=== PATIENT | female | born 1935 | race Two or more races ===

== ENCOUNTER → 2016-03-28 | Outpatient (CLI) | payer OTHER ==
[~2016-03-28] MED LIST: REGADENOSON 0.4 MG/5 ML DISP.SYRIN. IV ONE
--- NOTE | 2016-03-28 14:11 | RAD ---
APPROVED REPORT Test Type: Pharmacological Stress Nurse/Tech: WERNER Maxwell RN Test Indications: Dyspnea on exertion Cardiac History: see EHR Medications: see EHR Medical History: see EHR Resting ECG: Afib with RVR Resting Heart Rate: 125 bpm Resting Blood Pressure: 146/78mmHg Pretest Chest Pain: No chest pain Nurse/Tech Notes Lungs CTA, heart tones irregular Consent: The procedure was explained to the patient in lay terms. Informed consent was witnessed. Edis eout was entered into Nidmi. History and Stress Test performed by RT Damián (R) (N) Pharm. Details Pharmacologic stress testing was performed using 0.4mg per 5ml of regadenoson given intravenously ove r 7-10 seconds. Stress Symptoms No chest pain or symptoms. POST EXERCISE Reason for Termination: Infusion complete Max HR: 168 bpm 144% of Maximum Predicted HR: 116 bpm Max Blood Pressure: 152/73mmHg Chest Pain: No. Arrhythmia: Yes. occasional PVC ST Change: No. INTERPRETATION Stress EKG Conclusion: No acute changes were noted. Imaging Protocol IMAGE PROTOCOL: Rest Tc-99m/stress Tc-99m 1 day Rest: Stress: Viability: Radiopharm.Tc99m RrzerphvtRv80s Sestamibi Louv17uIe 34mCi Img Date 03/28/2016 03/28/2016 Inj-Img [id number]. 60min. Rest Admin Site:IV - Left ForearmAdministrator:RT Damián (R)(N) Stress Admin Site: IV - Left ForearmAdministrator: RT Damián (R)(N) STRESS DATA End Diast. Vol.27.0mlAv. Heart Dkxe373.0bpm End Syst. Vol.3.0mlCO Index BSA0.0L/min Myocardial Mass63.0gEject. Monxntar85.0% Stress Rates Pk. Fill Rate7.32EDV/secLVtime Pk. Fill 115.58msec Pk. Empty Rate6.00ESV/secLVtime Pk. Npofx079.00msec /3 Pk. Fill2.07EDV/sec Stress Scores Regional WT1.00Summed WT8.00 Regional WM0.00Summed WM0.00 The rest and stress images show normal perfusion, normal contraction and thickening. LV Perf. Quant 17 Seg. SSS0.00 17 Seg. SRS0.00 17 Seg. SDS0.00 Stress Defect Extent (% LAD)0.00Rest Defect Extent (% LAD)0.00Rev. Defect Extent (% LAD)0.00 Stress Defect Extent (% LCX) 0.00Rest Defect Extent (% LCX)0.00Rev. Defect Extent (% LCX)0.00 Stress Defect Extent (% RCA)0.00Rest Defect Extent (% RCA)0.00Rev. Defect Extent (% RCA)0.00 Stress Defect Extent (% EDIN)0.00Rest Defect Extent (% EDIN)0.00Rev. Defect Extent (% EDIN)0.00 Other Information Quality:Excellent Risk Assessment: Low Risk Conclusion 1. No evidence of stress induced EKG changes. 2. Normal myocardial perfusion at stress/rest 3. Low risk study 4. Normal EF at > 70%
--- NOTE | 2016-03-28 14:35 | CARD ---
APPROVED REPORT EXAM: Two-dimensional and M-mode echocardiogram with Doppler and color Doppler. Other Information Quality : Good Rhythm : Atrial Fibrillation INDICATION Dyspnea Atrial Fibrillation 2D DIMENSIONS RVDd2.1 (2.9-3.5cm)Left Atrium(2D)5.1 (1.6-4.0cm) IVSd0.9 (0.7-1.1cm)Aortic Root(2D)2.1 (2.0-3.7cm) LVDd4.2 (3.9-5.9cm)LVOT Diameter1.9 (1.8-2.4cm) PWd1.0 (0.7-1.1cm)LVDs3.5 (2.5-4.0cm) FS (%) 25.0 %SV29.0 ml LVEF(%)50.0 (>50%) Aortic Valve AoV Peak Luís.134.3cm/sAoV VTI23.3cm AO Peak GR.7.2mmHgLVOT Peak Luís.94.3cm/s AO Mean GR.4mmHgAVA (VMAX)1.98cm2 JOSE ELIAS (VTI)1.22gl9AM P 1/2 Aglp999ay Mitral Valve MV E Ysmpewuu927.0cm/sMV DECEL HCVH06pz MV A Velocity0.1cm/sE/A Vuzcq2008.0 Tricuspid Valve TR P. Uhrmbpge557ss/sRAP YQMFQXWY1tbRe TR Peak Gr.49ebNwNCIA52xkBq LEFT VENTRICLE The left ventricle is normal size. There is normal left ventricular wall thickness. Left ventricle sy stolic function is low normal. The Ejection Fraction is 50-55%. There is normal LV segmental wall mot ion. Tissue Doppler imaging reveals moderate left ventricular diastolic dysfunction. RIGHT VENTRICLE The right ventricle is normal size. The right ventricular systolic function is normal. ATRIA The left atrium is severely dilated. The right atrium size is normal. The interatrial septum is intac t with no evidence for an atrial septal defect or patent foramen ovale as noted on 2-D or Doppler ant ging. AORTIC VALVE The aortic valve is calcified but opens well. Doppler and Color Flow revealed mild aortic regurgitati on. There is no significant aortic valvular stenosis. MITRAL VALVE The mitral valve is normal in structure and function. Mitral annular calcification is mild. There is no evidence of mitral valve prolapse. There is no mitral valve stenosis. Doppler and Color-flow revea led mild mitral regurgitation. TRICUSPID VALVE The tricuspid valve is normal in structure and function. Doppler and Color Flow revealed mild tricusp id regurgitation. The PA pressure was estimated at 37 mmHg. There is no tricuspid valve stenosis. PULMONIC VALVE The pulmonary valve is normal in structure and function. Doppler and Color Flow revealed trace pulmon ic valvular regurgitation. There is no pulmonic valvular stenosis. GREAT VESSELS The aortic root is normal in size. The ascending aorta is normal in size. The IVC is normal in size a nd collapses >50% with inspiration. PERICARDIAL EFFUSION There is no evidence of significant pericardial effusion. Critical Notification Critical Value: No <Conclusion> Left ventricle systolic function is low normal. The Ejection Fraction is 50-55%. There is normal LV segmental wall motion. Tissue Doppler imaging reveals moderate left ventricular diastolic dysfunction. The left atrium is severely dilated.
== END | disposition home or self-care (01) ==
LOC: NM 08:28
PROVIDERS: ATTEND Internal Medicine Cardiovascular Disease
DX: I34.0 Nonrheumatic mitral (valve) insufficiency (principal); I51.9 Heart disease, unspecified; I37.1 Nonrheumatic pulmonary valve insufficiency; I07.1 Rheumatic tricuspid insufficiency; I34.8 Other nonrheumatic mitral valve disorders; I35.1 Nonrheumatic aortic (valve) insufficiency
CPT/HCPCS: 78452; 93017; 93306; 96374; 96376; A9500; J2785

== ENCOUNTER → 2016-09-13 | Outpatient (CLI) | payer OTHER ==
[~2016-09-13] MED LIST changes: +CELE200C PO; +GABA-585 PO; +LISI-334 PO; +MOME13HF2 IH; -REGADENOSON 0.4 MG/5 ML DISP.SYRIN. IV ONE; +WARF2TAB7 PO
--- NOTE | 2016-09-13 10:17 | KCIC ---
EXAM: Bilateral screening mammogram. HISTORY: 81-year-old female presents for screening mammography. TECHNIQUE: Full-field digital craniocaudal and mediolateral oblique views of both breasts are obtained for evaluation. Computer aided detection with KreditsD software version 9.3 was applied. COMPARISON: None. This is a baseline mammogram. BREAST PARENCHYMAL DENSITY: Level B - Scattered fibroglandular densities. FINDINGS: There is no suspicious mass, microcalcification or region of architectural distortion. There are benign calcifications within both breasts, predominantly vascular in etiology. There is a small left maxillary tail lymph node. IMPRESSION: BI-RADS Category 2: Benign finding(s). RECOMMENDATION: Annual mammography is recommended. If your mammogram demonstrates that you have dense breast tissue, which could hide abnormalities, and if you have other risk factors for breast cancer that have been identified, you might benefit from supplemental screening tests that may be suggested by your ordering physician. Dense breast tissue, in and of itself, is a relatively common condition. This information is not provided to cause undue concern, but rather to raise your awareness and to promote discussion with your physician regarding the presence of other risk factors, in addition to dense breast tissue. A report of your mammography results will be sent to you and your physician. You should contact your physician if you have any questions or concerns regarding this report. Mammography is a sensitive method for finding small breast cancers, but it does not detect them all and is not a substitute for careful clinical examination. A negative mammogram does not negate a clinically suspicious finding and should not result in delay in biopsying a clinically suspicious abnormality. PQRS compliance statement - Patient information was entered into a reminder system with a target due date for the next mammogram. "Our facility is accredited by the [employer] Mammography Program." Electronically signed by: Lesley Cordova MD (09/13/2016 10:14 AM)
== END | disposition home or self-care (01) ==
LOC: KCIC 09:19
PROVIDERS: ATTEND Family Medicine
DX: Z12.31 Encounter for screening mammogram for malignant neoplasm of breast (principal)
CPT/HCPCS: G0202; 77067

== ENCOUNTER → 2016-09-14 | Day surgery (SDC) | payer OTHER ==
[~2016-09-14] MED LIST changes: +HYDROmorphone 2 MG/ML VIAL IV PRN; +IPRATRPIUM/ALBUTEROL 0.5/2.5MG 3 ML NEBU. NEB ONE; +IV RINGERS,LACTATED 1000ML 1,000 ML IV SCH; +LIDOCAINE 1% 1 ML SYRINGE. ID PRN; +LIDOCAINE 2% PF Vial for OR 5 ML VIAL. ONE; +MORPHINE SULFATE 2 MG/ML DISP.SYRIN. IV PRN; +ONDANSETRON PF 4 MG/2 ML VIAL. IV PRN; +PROCHLORPERAZINE 10 MG/2 ML VIAL. IV PRN; +PROPOFOL 20 ML IV ONE; +fentaNYL PF VIAL 100 MCG/2 ML VIAL IV PRN
[2016-09-14 10:33] VITALS: BP 153/68
--- NOTE | 2016-09-18 13:53 | PATHOLOGY ---
PATHOLOGY REPORT * * * * * * * * FINAL DIAGNOSIS: A. Small bowel biopsy: - No significant pathologic abnormalities. B. Gastric biopsies, antrum: - Chronic gastritis, mild. C. 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 COMMENT: Sections of the small bowel biopsy reveal segments of duodenal and small intestine mucosa. Where best oriented, the mucosal villi appear normal. There are no sprue-like changes or significant inflammatory changes. Sections of the gastric biopsy reveal segments of gastric body and gastric antral mucosa. The gastric body mucosa shows slight superficial chronic inflammation. The gastric antral mucosa shows mild chronic inflammation. An immunoperoxidase stain for Helicobacter is obtained. No Helicobacter organisms are identified. 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 There is no squamous esophageal mucosa identified. There is no evidence of dysplasia or malignancy. (JPM:mgr; 09/18/2016) Special Stain Performed: Immunoperoxidase stain for Helicobacter (B1) REPORT ELECTRONICALLY SIGNED BY: Arun Chavira M.D. DATE/TIME: 09/18/2016 13:52 * * * * * * * * GROSS PATHOLOGY: A. Received in formalin labeled "Macie Amtrumanquitarazo, small bowel," are four segments of knight soft tissue measuring 0.8 x 0.6 x 0.1 cm in aggregate dimensions and ranging from 0.2 to 0.4 cm in maximum dimension. The specimen is submitted entirely in cassette A1. B. Received in formalin labeled "Macie Amtrumanquitarazo, antrum," are two segments of knight soft tissue measuring 0.7 x 0.4 x 0.1 cm in aggregate dimensions and ranging from 0.3 to 0.7 cm in maximum dimension. The specimen is submitted entirely in cassette B1. C. Received in formalin labeled "Macie Amtrumanquitarazo, distal esophagus," are four segments of knight soft tissue measuring 0.6 x 0.6 x 0.2 cm in aggregate dimensions and ranging from 0.2 to 0.5 cm in maximum dimension. The specimen is submitted entirely in cassette C1. (CAA; 09/15/2016) INITIAL CPT CODE(S): A; 07175 B; 68788, 14493 C; 74107 Professional services performed by [facility] at [address] [address] Technical services performed by [facility] at [address] [place] [address], [address] [address]. SPECIMEN(S) RECEIVED: A.Small bowel B.Gastric antrum C.Distal esophagus CLINICAL HISTORY: Anemia PATIENT: MACIE BATRES I /AGE: 1101/28/1935 (Age: 81) PATIENT #: [id number] ALT CASE #: SPECIMEN COLLECTION DATE: 09/14/2016 SPECIMEN RECEIVED DATE: 09/14/2016 [facility] - [address] [place] [address] - PHONE: [phone] * * * END OF REPORT * * *
== END | disposition home or self-care (01) ==
LOC: ENDOS 08:54
PROVIDERS: ATTEND Internal Medicine Gastroenterology
DX: D50.9 Iron deficiency anemia, unspecified (principal); K21.0 Gastro-esophageal reflux disease with esophagitis; K31.89 Other diseases of stomach and duodenum; M19.90 Unspecified osteoarthritis, unspecified site; I10 Essential (primary) hypertension; Z83.3 Family history of diabetes mellitus; Z72.89 Other problems related to lifestyle; Z87.39 Personal history of other diseases of the musculoskeletal system and connective tissue
CPT/HCPCS: 43239; 94640; J2704; J7620; 88305; 88342; J2001

== ENCOUNTER → 2016-10-31 | Outpatient (CLI) | payer OTHER ==
[2016-09-14 10:33] VITALS: BP 153/68
[~2016-10-31] MED LIST changes: -HYDROmorphone 2 MG/ML VIAL IV PRN; -IPRATRPIUM/ALBUTEROL 0.5/2.5MG 3 ML NEBU. NEB ONE; -IV RINGERS,LACTATED 1000ML 1,000 ML IV SCH; -LIDOCAINE 1% 1 ML SYRINGE. ID PRN; -LIDOCAINE 2% PF Vial for OR 5 ML VIAL. ONE; -MORPHINE SULFATE 2 MG/ML DISP.SYRIN. IV PRN; -ONDANSETRON PF 4 MG/2 ML VIAL. IV PRN; -PROCHLORPERAZINE 10 MG/2 ML VIAL. IV PRN; -PROPOFOL 20 ML IV ONE; -fentaNYL PF VIAL 100 MCG/2 ML VIAL IV PRN
--- NOTE | 2016-10-31 14:23 | KCIC ---
KNEE BILAT 3V Indication: Knee osteoarthritis. . Comparison: No comparison is available. FINDINGS: Left knee Moderate narrowing at the medial joint compartment with mild subchondral sclerosis. Tricompartmental osteophytes. Bone demineralization. No evidence of acute fracture or aggressive bone destruction. Mild lateral tibial shift, compatible with degenerative etiology. Suprapatellar soft tissue fullness compatible with joint effusion. Right knee Moderate to severe narrowing at the medial joint compartment with subchondral sclerosis. Tricompartmental osteophytes. No acute fracture. No aggressive bone destruction. No gross dislocation. Probable joint effusion. IMPRESSION: 1. Bilateral primary osteoarthritis. 2. Bilateral joint effusions. Electronically signed by: Nickolas Lovett MD (10/31/2016 2:20 PM) [facility]-KCIC2
== END | disposition home or self-care (01) ==
LOC: KCIC 12:33
PROVIDERS: ATTEND Family Medicine
DX: M17.0 Bilateral primary osteoarthritis of knee (principal)
CPT/HCPCS: 73562

== ENCOUNTER → 2017-06-13 | Outpatient (CLI) | payer OTHER ==
[2017-06-13 11:40] LABS: ADD MAN DIFF? NO
[2017-06-13 11:50] LABS: BASO # 0.1 x10^3/uL (0.0-0.2); BASO % 1 % (0-3); EOS # 0.1 x10^3/uL (0.0-0.7); EOS % 2 % (0-3); HEMATOCRIT 35.5 % (36.0-47.0); HEMOGLOBIN 11.8 g/dL (12.0-15.5); LYMPH # 1.7 x10^3/uL (1.0-4.8); LYMPH % 28 % (24-48); MEAN CORPUSCULAR HEMOGLOBIN 30 pg (25-35); MEAN CORPUSCULAR HGB CONC 33 g/dL (31-37); MEAN CORPUSCULAR VOLUME 89 fL (79-100); MONO # 0.4 x10^3/uL (0.0-1.1); MONO % 6 % (0-9); NEUT % 64 % (31-73); PLATELET COUNT 280 x10^3/uL (140-400); RED BLOOD COUNT 3.98 x10^6/uL (3.50-5.40); RED CELL DISTRIBUTION WIDTH 15.3 % (11.5-14.5); WHITE BLOOD COUNT 6.3 x10^3/uL (4.0-11.0)
[2017-06-13 11:53] LABS: ALBUMIN 3.4 g/dL (3.4-5.0); ANION GAP 6 (6-14); BLOOD UREA NITROGEN 25 mg/dL (7-20); CALCIUM 9.2 mg/dL (8.5-10.1); CARBON DIOXIDE 29 mmol/L (21-32); CHLORIDE 107 mmol/L (98-107); CREATININE 0.9 mg/dL (0.6-1.0); GFR 59.7; GLUCOSE 104 mg/dL (70-99); POTASSIUM 4.2 mmol/L (3.5-5.1); SODIUM 142 mmol/L (136-145)
[2017-06-13 12:11] LABS: PARTIAL THROMBOPLASTIN TIME 31 SEC (24-38); PROTHROMBIN TIME PATIENT 12.6 SEC (11.7-14.0)
[2017-06-13 12:32] LABS: BILIRUBIN,URINE NEGATIVE (NEG); CLARITY,URINE CLEAR; COLOR,URINE YELLOW; GLUCOSE,URINE NEGATIVE (NEG); NITRITE,URINE NEGATIVE (NEG); PROTEIN,URINE NEGATIVE (NEG-TRACE); UROBILINOGEN,URINE 0.2 mg/dL (0.2 mg/dL)
[2017-06-13 13:01] LABS: BACTERIA,URINE FEW /HPF (0-FEW); RBC,URINE 0 /HPF (0-2); SQUAMOUS EPITHELIAL CELL,UR FEW /LPF; WBC,URINE OCC /HPF (0-4)
[2017-06-13 13:02] LABS: HYALINE CASTS, URINE OCCASIONAL /HPF
[2017-06-13 13:46] LABS: SEDIMENTATION RATE 51 (0-25)
[2017-06-13 20:12] LABS: MRSA BY PCR Negative (Negative)
== END | disposition home or self-care (01) ==
LOC: SURGPAT 10:36
DX: Z01.818 Encounter for other preprocedural examination (principal); I51.7 Cardiomegaly; I10 Essential (primary) hypertension; I70.0 Atherosclerosis of aorta
CPT/HCPCS: 36415; 71046; 80048; 81001; 82040; 85025; 85610; 85651; 85730; 87086; 87641

== ENCOUNTER 2017-06-25 06:04 | Inpatient (IN) | payer OTHER, MEDICAID ==
[2017-06-25] MEDS: ACETAMINOPHEN 500 MG TABLET PO (06:54)
[2017-06-25] MEDS: MELOXICAM 7.5 MG TABLET PO (06:54)
[2017-06-25] MEDS: IV RINGERS,LACTATED 1000ML 1,000 ML IV (06:54)
[2017-06-25] MEDS ORDERED: PROCHLORPERAZINE 10 MG/2 ML VIAL. IV ×2 (07:00→07:45)
[2017-06-25] MEDS ORDERED: HYDROmorphone 2 MG/ML VIAL IV (07:00)
[2017-06-25] MEDS ORDERED: fentaNYL PF VIAL 100 MCG/2 ML VIAL IV ×4 (07:00→07:45)
[2017-06-25] MEDS ORDERED: LIDOCAINE 1% PF 2 ML VIAL. ID (07:00)
[2017-06-25] MEDS ORDERED: PROPOFOL 20 ML IV (07:05)
[2017-06-25] MEDS ORDERED: ONDANSETRON PF 4 MG/2 ML VIAL. (07:05)
[2017-06-25] MEDS ORDERED: DEXAMETHASONE SOD PHOS 20 MG/5 ML VIAL. (07:05)
[2017-06-25] MEDS ORDERED: ROCURONIUM 50 MG/5 ML VIAL. (07:06)
[2017-06-25] MEDS ORDERED: fentaNYL PF VIAL 100 MCG/2 ML VIAL (07:06)
[2017-06-25 07:10] LABS: INR 1.1 (0.8-1.1); PARTIAL THROMBOPLASTIN TIME 29 SEC (24-38); PROTHROMBIN TIME PATIENT 13.8 SEC (11.7-14.0)
[2017-06-25] MEDS: ceFAZolin SODIUM 1 GM in IV DEXTROSE 5% 50 ML IV (07:40)
[2017-06-25] MEDS ORDERED: NON FORMULARY ITEM (Mometasone/Formoterol (Dulera 100 Mcg/5 Mcg Inhaler) 2 PUFF) IH (07:45)
[2017-06-25] MEDS ORDERED: PROCHLORPERAZINE 5 MG TABLET. PO (07:45)
[2017-06-25] MEDS ORDERED: DEXTROSE 50% 25 GM / 50ML DISP.SYRIN. IV (07:45)
[2017-06-25] MEDS ORDERED: diphenhydrAMINE 50 MG/ML VIAL IV (07:45)
[2017-06-25] MEDS ORDERED: METOCLOPRAMIDE HCL 10 MG/2 ML VIAL. IV (07:45)
[2017-06-25] MEDS ORDERED: traMADol 50 MG TABLET PO ×2 (07:45)
[2017-06-25] MEDS ORDERED: HYDROcodone/APAP 10/325 1 TAB TABLET PO (07:45)
[2017-06-25] MEDS ORDERED: HYDROcodone/APAP 7.5/325MG 1 TAB TABLET PO (07:45)
[2017-06-25] MEDS ORDERED: CALCIUM CARBONATE 500 MG TAB.CHEW PO (07:45)
[2017-06-25] MEDS ORDERED: ACETAMINOPHEN 325 MG TABLET. PO (07:45)
[2017-06-25] MEDS ORDERED: NON FORMULARY ITEM (Albuterol Sulfate (Albuterol Sulfate Conc Neb Soln) 1 VIAL) NEB (07:45)
[2017-06-25] MEDS ORDERED: ZOLPIDEM 5 MG TABLET. PO (07:45)
[2017-06-25] MEDS ORDERED: MORPHINE SULFATE 10 MG/ML VIAL. IV (07:45)
[2017-06-25] MEDS ORDERED: MORPHINE SULFATE 4 MG/ML DISP.SYRIN. IV ×2 (07:45)
[2017-06-25] MEDS: TRANEXAMIC ACID 1,000 MG in IV NS 50ML -- 1ST BAG INJ (07:55)
[2017-06-25] MEDS: TV=100ml MORPHINE 5 MG, KETOROLAC 30 MG, ROPIVacaine 0.5% PF 60 ML, EPINEPH... INT ART (07:58)
[2017-06-25] MEDS ORDERED: ceFAZolin 2GM PREMIX 2 GM/50 ML BAG IV (08:00)
[2017-06-25] MEDS ORDERED: PHENYLEPHRINE in 0.9% NACL PF 1 MG/10 ML SYRINGE. IV (08:19)
[2017-06-25] MEDS ORDERED: GLYCOPYRROLATE 1 MG/5 ML VIAL. (08:20)
[2017-06-25] MEDS ORDERED: NEOSTIGMINE METHYLSULFATE 5 MG/5 ML SYRINGE. (08:20)
[2017-06-25] MEDS ORDERED: ALBUTEROL SULFATE 2.5 MG/3 ML NEBU. NEB (08:45)
[2017-06-25] MEDS ORDERED: SEVOFLURANE 61 TO 120 MINUTES. IH (08:52)
[2017-06-25] MEDS: TRANEXAMIC ACID 1,000 MG in IV NS 50ML -- 2ND BAG INJ (08:55)
[2017-06-25] MEDS ORDERED: fentaNYL PF VIAL 250 MCG/5 ML VIAL (09:27)
[2017-06-25] MEDS: MORPHINE SULFATE 4 MG/ML DISP.SYRIN. IV ×3 (10:05→10:36)
[2017-06-25] MEDS: 0.9 % SODIUM CHLORIDE 10 ML DISP.SYRIN. IV (10:06)
[2017-06-25] MEDS: IV DEXTROSE 5 %-0.45 % NACL 1,000 ML IV ×2 (10:35→15:54)
[2017-06-25] MEDS: ONDANSETRON PF 4 MG/2 ML VIAL. IV (11:39)
[2017-06-25] MEDS ORDERED: NOREPINEPHRIN PREMIX 250 ML IV (11:45)
[2017-06-25] MEDS: ALBUTEROL SULFATE 2.5 MG/3 ML NEBU. NEB ×3 (12:00→20:22)
[2017-06-25] MEDS: ceFAZolin SODIUM IV Push 1 GM VIAL. IVP ×2 (13:47→20:53)
[2017-06-25] MEDS: GABAPENTIN 100 MG CAPSULE. PO ×2 (13:47→20:53)
[2017-06-25] MEDS ORDERED: WARFARIN 7.5 MG TABLET. PO (16:00)
[2017-06-25] MEDS: FERROUS SULFATE 325 MG TABLET. PO (17:04)
[2017-06-25] MEDS: WARFARIN 5 MG TABLET. PO (17:05)
[2017-06-25] MEDS: BUDESONIDE 0.5 MG/2 ML NEBU. NEB (20:22)
[2017-06-25] MEDS: CELECOXIB 200 MG CAPSULE. PO (20:53)
[2017-06-26] MEDS: ceFAZolin SODIUM IV Push 1 GM VIAL. IVP (01:50)
[2017-06-26] MEDS: IV DEXTROSE 5 %-0.45 % NACL 1,000 ML IV ×2 (01:50→17:00)
[2017-06-26] MEDS ORDERED: MAGNESIUM HYDROXIDE 2,400 MG/30 ML ORAL.SUSP. PO (06:00)
[2017-06-26 07:01] LABS: HEMATOCRIT 28.8 % (36.0-47.0); HEMOGLOBIN 9.4 g/dL (12.0-15.5); MEAN CORPUSCULAR HGB CONC 33 g/dL (31-37)
[2017-06-26] MEDS: BUDESONIDE 0.5 MG/2 ML NEBU. NEB ×2 (07:09→20:11)
[2017-06-26] MEDS: ALBUTEROL SULFATE 2.5 MG/3 ML NEBU. NEB ×4 (07:09→20:11)
[2017-06-26 07:21] LABS: INR 1.9 (0.8-1.1); PROTHROMBIN TIME PATIENT 21.1 SEC (11.7-14.0)
[2017-06-26] MEDS: LISINOPRIL 20 MG TABLET PO (07:41)
[2017-06-26] MEDS: CELECOXIB 200 MG CAPSULE. PO ×2 (09:11→20:26)
[2017-06-26] MEDS: GABAPENTIN 100 MG CAPSULE. PO ×3 (09:12→20:26)
[2017-06-26] MEDS: PANTOPRAZOLE 40 MG TABLET.DR. PO (09:12)
[2017-06-26] MEDS: SENNOSIDES/DOCUSATE 8.6/50MG TABLET. PO (09:12)
[2017-06-26] MEDS: ASPIRIN ENTERIC COATED 81 MG TABLET.DR. PO (09:12)
[2017-06-26] MEDS: oxyCODONE/APAP 7.5/325 1 TAB TABLET PO (09:12)
[2017-06-26] MEDS: MULTIVITAMIN with MINERAL TABLET. PO (09:12)
[2017-06-26] MEDS: FERROUS SULFATE 325 MG TABLET. PO ×2 (09:12→17:37)
[2017-06-26] MEDS: oxyCODONE/APAP 5/325 1 TAB TABLET PO ×2 (14:25→17:42)
[2017-06-26] MEDS ORDERED: BISACODYL 10 MG SUPP.RECT. PR (16:00)
[2017-06-26] MEDS: WARFARIN 1 MG TABLET. PO (17:38)
[2017-06-27] MEDS: oxyCODONE/APAP 5/325 1 TAB TABLET PO ×4 (03:09→17:24)
[2017-06-27 05:48] LABS: HEMATOCRIT 26.3 % (36.0-47.0); HEMOGLOBIN 8.8 g/dL (12.0-15.5); MEAN CORPUSCULAR HGB CONC 33 g/dL (31-37)
[2017-06-27 05:55] LABS: INR 3.3 (0.8-1.1); PROTHROMBIN TIME PATIENT 33.1 SEC (11.7-14.0)
[2017-06-27] MEDS: ALBUTEROL SULFATE 2.5 MG/3 ML NEBU. NEB ×4 (06:45→20:09)
[2017-06-27] MEDS: BUDESONIDE 0.5 MG/2 ML NEBU. NEB ×2 (06:45→20:09)
[2017-06-27] MEDS: PANTOPRAZOLE 40 MG TABLET.DR. PO (07:06)
[2017-06-27] MEDS: ASPIRIN ENTERIC COATED 81 MG TABLET.DR. PO (08:44)
[2017-06-27] MEDS: CELECOXIB 200 MG CAPSULE. PO ×2 (08:44→21:03)
[2017-06-27] MEDS: SENNOSIDES/DOCUSATE 8.6/50MG TABLET. PO (08:44)
[2017-06-27] MEDS: FERROUS SULFATE 325 MG TABLET. PO ×2 (08:45→17:23)
[2017-06-27] MEDS: MULTIVITAMIN with MINERAL TABLET. PO (08:45)
[2017-06-27] MEDS: GABAPENTIN 100 MG CAPSULE. PO ×3 (08:45→21:03)
[2017-06-27] MEDS: LISINOPRIL 20 MG TABLET PO (09:00)
[2017-06-28 05:26] LABS: HEMATOCRIT 29.4 % (36.0-47.0); HEMOGLOBIN 9.9 g/dL (12.0-15.5); MEAN CORPUSCULAR HGB CONC 34 g/dL (31-37)
[2017-06-28 05:29] LABS: INR 2.5 (0.8-1.1); PROTHROMBIN TIME PATIENT 26.6 SEC (11.7-14.0)
[2017-06-28] MEDS: PANTOPRAZOLE 40 MG TABLET.DR. PO (06:31)
[2017-06-28] MEDS: oxyCODONE/APAP 5/325 1 TAB TABLET PO (07:38)
[2017-06-28] MEDS: BUDESONIDE 0.5 MG/2 ML NEBU. NEB (08:11)
[2017-06-28] MEDS: ALBUTEROL SULFATE 2.5 MG/3 ML NEBU. NEB ×2 (08:12→12:00)
[2017-06-28] MEDS: SENNOSIDES/DOCUSATE 8.6/50MG TABLET. PO (08:35)
[2017-06-28] MEDS: MULTIVITAMIN with MINERAL TABLET. PO (08:35)
[2017-06-28] MEDS: ASPIRIN ENTERIC COATED 81 MG TABLET.DR. PO (08:35)
[2017-06-28] MEDS: CELECOXIB 200 MG CAPSULE. PO (08:35)
[2017-06-28] MEDS: GABAPENTIN 100 MG CAPSULE. PO ×2 (08:35→15:09)
[2017-06-28] MEDS: FERROUS SULFATE 325 MG TABLET. PO (08:35)
[2017-06-28] MEDS: LISINOPRIL 20 MG TABLET PO (08:40)
[2017-06-28] MEDS: oxyCODONE/APAP 7.5/325 1 TAB TABLET PO (12:34)
[2017-06-28] MEDS: WARFARIN 1 MG TABLET. PO (15:08)
== END 2017-06-28 15:25 | disposition home health service (06) | DRG 470 ==
LOC: OPSVCIP 06:04 → 4 SOUTHEST 06-26 10:11 → 4 NORTH 11:03
PROC: 0SRC0J9 Replacement of Right Knee Joint with Synthetic Substitute, Cemented, Open Approach (ICD-10-PCS; principal; 2017-06-25 07:30)
DX: M17.11 Unilateral primary osteoarthritis, right knee (principal); I48.0 Paroxysmal atrial fibrillation; J45.909 Unspecified asthma, uncomplicated; I10 Essential (primary) hypertension
CPT/HCPCS: 36415; 73560; 85014; 85018; 85610; 85730; 86850; 86900; 86901; 88305; 88311; 94640; 94760; 97110-GP; 97116-GP; 97150-GP; 97162-GP; 97166-GO; 97530-GP; 97535-GO; C1713; J0171; J0690; J1100; J1885; J2270; J2370; J2405; J2704; J2710; J2795; J3010; J3490; J7120; J7613; J7626

== ENCOUNTER → 2017-10-08 | Outpatient (CLI) | payer MEDICAID, OTHER ==
[2017-10-08 15:24] LABS: ADD MAN DIFF? NO
[2017-10-08 15:29] LABS: BASO # 0.1 x10^3/uL (0.0-0.2); BASO % 1 % (0-3); EOS # 0.1 x10^3/uL (0.0-0.7); EOS % 1 % (0-3); HEMATOCRIT 36.9 % (36.0-47.0); HEMOGLOBIN 12.7 g/dL (12.0-15.5); LYMPH # 2.1 x10^3/uL (1.0-4.8); LYMPH % 25 % (24-48); MEAN CORPUSCULAR HEMOGLOBIN 30 pg (25-35); MEAN CORPUSCULAR HGB CONC 34 g/dL (31-37); MEAN CORPUSCULAR VOLUME 88 fL (79-100); MONO # 0.5 x10^3/uL (0.0-1.1); MONO % 6 % (0-9); NEUT # 5.6 x10^3uL (1.8-7.7); NEUT % 67 % (31-73); PLATELET COUNT 287 x10^3/uL (140-400); RED BLOOD COUNT 4.19 x10^6/uL (3.50-5.40); RED CELL DISTRIBUTION WIDTH 16.3 % (11.5-14.5); WHITE BLOOD COUNT 8.3 x10^3/uL (4.0-11.0)
[2017-10-08 15:38] LABS: BILIRUBIN,URINE NEGATIVE (NEG); CLARITY,URINE CLEAR; GLUCOSE,URINE NEGATIVE (NEG); NITRITE,URINE NEGATIVE (NEG); PROTEIN,URINE NEGATIVE (NEG-TRACE); UROBILINOGEN,URINE 0.2 mg/dL (0.2 mg/dL)
[2017-10-08 15:40] LABS: ALBUMIN 3.4 g/dL (3.4-5.0); ANION GAP 9 (6-14); BLOOD UREA NITROGEN 27 mg/dL (7-20); CALCIUM 9.2 mg/dL (8.5-10.1); CARBON DIOXIDE 27 mmol/L (21-32); CHLORIDE 104 mmol/L (98-107); CREATININE 0.9 mg/dL (0.6-1.0); GFR 59.7; GLUCOSE 105 mg/dL (70-99); POTASSIUM 3.7 mmol/L (3.5-5.1); SODIUM 140 mmol/L (136-145)
[2017-10-08 15:41] LABS: INR 1.1 (0.8-1.1); PARTIAL THROMBOPLASTIN TIME 31 SEC (24-38); PROTHROMBIN TIME PATIENT 13.4 SEC (11.7-14.0)
[2017-10-08 15:52] LABS: COLOR,URINE STRAW
[2017-10-08 15:54] LABS: RBC,URINE 0 /HPF (0-2)
[2017-10-08 15:55] LABS: BACTERIA,URINE 0 /HPF (0-FEW); SQUAMOUS EPITHELIAL CELL,UR FEW /LPF; WBC,URINE OCC /HPF (0-4)
[2017-10-08 16:58] LABS: SEDIMENTATION RATE 35 (0-25)
[2017-10-09 07:39] LABS: MRSA BY PCR Negative (Negative)
== END | disposition home or self-care (01) ==
LOC: SURGPAT 13:20
DX: Z01.818 Encounter for other preprocedural examination (principal); M17.12 Unilateral primary osteoarthritis, left knee; I10 Essential (primary) hypertension; J45.909 Unspecified asthma, uncomplicated; K21.0 Gastro-esophageal reflux disease with esophagitis; Z86.2 Personal history of diseases of the blood and blood-forming organs and certain disorders involving the immune mechanism; Z87.39 Personal history of other diseases of the musculoskeletal system and connective tissue
CPT/HCPCS: 36415; 80048; 81001; 82040; 85025; 85610; 85651; 85730; 87086; 87641

== ENCOUNTER 2017-10-22 07:34 | Inpatient (IN) | payer OTHER ==
[~2017-10-22] VITALS: Ht 142.2 cm; Wt 55.3 kg
[2017-10-22] VITALS (10 sets, daily range): BP systolic 120–176; BP diastolic 66–78
[~2017-10-22 07:34] MED LIST changes: +ALBU2.5V14 NEB; +ASPI-482 PO; +IV RINGERS,LACTATED 1000ML 1,000 ML IV SCH; +LIDOCAINE 1% PF 2 ML VIAL. ID PRN; +MORPHINE SULFATE 2 MG/ML VIAL. IV PRN; +NAPR220T70 PO; +OMEP40CA5 PO; +ONDANSETRON PF 4 MG/2 ML VIAL. IV PRN; +OXYC-323 PO; +PROCHLORPERAZINE 10 MG/2 ML VIAL. IV PRN; +TRANEXAMIC ACID 1,000 MG in IV NS 50ML -- 1ST BAG INJ ONE; +TV=100ml MORPHINE 5 MG, KETOROLAC 30 MG, ROPIVacaine 0.5% PF 60 ML, EPINEPH... INT ART ONE; -WARF2TAB7 PO; +WARF2TAB96 PO; +fentaNYL PF VIAL 100 MCG/2 ML VIAL IV PRN
[2017-10-22] MEDS ORDERED: TRANEXAMIC ACID 1,000 MG in IV NS 50ML -- 2ND BAG INJ ONE (08:00)
[2017-10-22] MEDS ORDERED: MELOXICAM 7.5 MG TABLET PO ONE ×2 (08:01→09:00)
[2017-10-22] MEDS ORDERED: ACETAMINOPHEN 500 MG TABLET PO ONE ×2 (08:01→08:30)
[2017-10-22] MEDS ORDERED: WARF-78 PO (08:10)
[2017-10-22] MEDS ORDERED: fentaNYL PF VIAL 100 MCG/2 ML VIAL ONE (08:11)
[2017-10-22] MEDS ORDERED: PROPOFOL 20 ML IV ONE (08:11)
[2017-10-22] MEDS ORDERED: LIDOCAINE 2% PF Vial for OR 5 ML VIAL. ONE (08:11)
[2017-10-22] MEDS ORDERED: MELO15TA6 PO (08:12)
[2017-10-22] MEDS ORDERED: SCOPOLAMINE 1.5MG PATCH. TD ONE (09:00)
[2017-10-22] MEDS ORDERED: MELOXICAM 7.5 MG TABLET PO SCH (09:00)
[2017-10-22 10:08] LABS: PROTHROMBIN TIME PATIENT 14.2 SEC (11.7-14.0)
[2017-10-22] MEDS: IV DEXTROSE 5 %-0.45 % NACL 1,000 ML IV SCH ×2 (10:26→20:39)
[2017-10-22] MEDS ORDERED: ZOLPIDEM 5 MG TABLET. PO PRN (10:30)
[2017-10-22] MEDS ORDERED: METOCLOPRAMIDE HCL 10 MG/2 ML VIAL. IV PRN (10:30)
[2017-10-22] MEDS ORDERED: PROCHLORPERAZINE 5 MG TABLET. PO PRN (10:30)
[2017-10-22] MEDS ORDERED: NON FORMULARY ITEM (Mometasone/Formoterol (Dulera 100 Mcg/5 Mcg Inhaler) 2 PUFF) IH PRN (10:30)
[2017-10-22] MEDS ORDERED: oxyCODONE/APAP 7.5/325 1 TAB TABLET PO PRN (10:30)
[2017-10-22] MEDS ORDERED: DEXTROSE 50% 25 GM / 50ML DISP.SYRIN. IV PRN (10:30)
[2017-10-22] MEDS ORDERED: MORPHINE SULFATE 10 MG/ML VIAL. IV PRN (10:30)
[2017-10-22] MEDS ORDERED: fentaNYL PF VIAL 100 MCG/2 ML VIAL IV PRN ×2 (10:30)
[2017-10-22] MEDS ORDERED: PROCHLORPERAZINE 10 MG/2 ML VIAL. IV PRN (10:30)
[2017-10-22] MEDS ORDERED: 0.9 % SODIUM CHLORIDE 10 ML DISP.SYRIN. IV PRN (10:30)
[2017-10-22] MEDS ORDERED: CALCIUM CARBONATE 500 MG TAB.CHEW PO PRN (10:30)
[2017-10-22] MEDS ORDERED: MORPHINE SULFATE 4 MG/ML VIAL. IV PRN ×2 (10:30)
[2017-10-22] MEDS ORDERED: ACETAMINOPHEN 325 MG TABLET. PO PRN (10:30)
[2017-10-22] MEDS ORDERED: MORPHINE SULFATE 2 MG/ML VIAL. IV PRN (10:30)
[2017-10-22] MEDS ORDERED: HYDROcodone/APAP 7.5/325MG 1 TAB TABLET PO PRN (10:30)
[2017-10-22] MEDS ORDERED: diphenhydrAMINE 50 MG/ML VIAL IV PRN (10:30)
[2017-10-22] MEDS ORDERED: HYDROcodone/APAP 10/325 1 TAB TABLET PO PRN (10:30)
[2017-10-22] MEDS ORDERED: traMADol 50 MG TABLET PO PRN ×2 (10:30)
[2017-10-22] MEDS ORDERED: SEVOFLURANE 61 TO 120 MINUTES. IH ONE (10:33)
[2017-10-22] MEDS ORDERED: DEXAMETHASONE SOD PHOS 20 MG/5 ML VIAL. ONE (10:33)
[2017-10-22] MEDS ORDERED: ONDANSETRON PF 4 MG/2 ML VIAL. ONE (10:46)
[2017-10-22] MEDS ORDERED: ePHEDrine PF IN SALINE 50 MG/5 ML DISP.SYRIN IV ONE (11:16)
[2017-10-22] MEDS: ALBUTEROL SULFATE 2.5 MG/3 ML NEBU. NEB SCH ×3 (12:00→19:10)
[2017-10-22] MEDS: LISINOPRIL 20 MG TABLET PO SCH (12:00)
[2017-10-22] MEDS: fentaNYL PF VIAL 100 MCG/2 ML VIAL IV PRN ×3 (12:24→13:10)
--- NOTE | 2017-10-22 12:59 | RAD ---
Examination: 2 views of the left knee HISTORY: History of postop left knee replacement comparison: 05/22/2017 FINDINGS: Total knee arthroplasty changes in normal alignment. Postoperative air and postoperative history identified about the knee joint. Impression: Total arthroplasty grossly changes in normal alignment. Electronically signed by: Hugh Harding MD (10/22/2017 12:55 PM) [id number]
--- NOTE | 2017-10-22 14:22 | PDOC4 ---
Operative Note Operative Note Date of procedure: 10/22/2017 Surgeon: Pelon Carrero Job Hand: Ishan Knapp APRN Preoperative diagnosis: Advanced left knee primary degenerative joint disease Postoperative diagnosis: Same Procedure performed: Left total knee arthroplasty Anesthesia: Gen. Findings: Advanced primary degenerative joint disease of knee Complications: none Blood loss: 75ml Tourniquet time: 49 min Components inserted: P[employer]hew cobalt chrome femur size 3, size 1 journey II tibial baseplate, 23 biconvex patella, 11 mm articular insert Reason for procedure: Patient is a very pleasant woman underwent a successful contralateral total Knee with myself and was having severe and progressive pain that failed conservative therapies including anti-inflammatories, rehabilitation, intra- articular injections. We discussed proceeding with right total knee arthroplasty knee felt she had recovered well enough after her contralateral knee to do so. Description of procedure: Patient was greeted in the preoperative holding area by myself for the correct extremity was verified and marked. She was taken back to the operative suite and his antibiotics were started as she was brought back. Once in the operating room, she was transferred gently supine to the operating room table and secured the bed with all pressure points padded and had successful induction of a general anesthetic. I then conducted my examination under anesthesia which demonstrated range of motion 0-135. The knee was stable to varus and valgus in extension and 30 of flexion. We then applied and secured in place a nonsterile tourniquet to her left upper thigh. A padded bump was placed laterally at his hip and a padded rest across the foot of the bed to maintain his knee in 90 passively. We then proceeded to prep and drape right lower extremity in our usual sterile fashion including an Ioban [place]. After this, I palpated and marked surface anatomy and mykel a line from my plan skin incision. The extremity was then exsanguinated with an Esmarch and tourniquet insufflated to 250 mmHg. I then incised skin with a scalpel and dissected down to subcutaneous knee is tissue and cauterized bleeders with electrocautery. I identified the quadriceps tendon, borders of the patella and patellar tendon. I then performed my standard medial parapatellar arthrotomy and then performed my medial release with combination of Mondragon elevator and electrocautery. I then bluntly dissected the fat pad off the posterior aspect of the patellar tendon and protected this with an [facility] retractor while excised the fat pad with a curved Odell scissors. I then released the horns of the menisci anteriorly, flexed the knee and excised the cruciates. I then sized for her distal femur, it was a 3. I then gained entry to the distal femur after marking the epicondylar axis and Whitesides lines. I used a drill. I then advanced my intramedullary guide and pinned the distal cutting block into position. I then made my distal femoral cut and then impacted my 5 in 1 cutting block through the visionary holes and secured the this with threaded pins. I then made these respective cuts after placing my Z retractors to protect the collaterals. I then remove the cutting block and the loose bony pieces, taking care to ensure had removed osteophytes posteriorly. I then repositioned my retractors and flexed the knee further, and used the extramedullary tibial cutting guide and pinned this in position and made my proximal tibial cut. This bony piece was delivered from the operative field was circumferentially electrocautery. I then brought the leg him to extension and checked a spacer block and drop petra and was happy with my alignment and stability. I then used a lamina counter control operator and excised the menisci, leaving a rim peripherally for later identification. I then flexed the knee again and repositioned my retractors and sized and pinned my plate baseplate trial into position. I referenced the medial third of the tibial tubercle. I then drilled and punched for this. I then impacted my trial femur into position and reamed and used the box osteotome for the cam. I removed this loose bony debris and then inserted the cam portion of my distal femoral component and then trialed the knee with a 9 mm polyethylene, followed by a 10 and 11.. I then directed my attention to the patella. I sized and reamed for the patella. With patellar button in place, she had excellent tracking and range of motion. Range of motion was 0-140 knee was stable to varus and valgus in extension and mid flexion, with the left and in place.. I then removed all trial components and thoroughly irrigated all bony surfaces and then proceeded to cement in place my tibial component followed by my femoral component. The trial polyethylene was inserted and engaged and the cement was allowed to polymerize with the leg in extension. Care was taken remove all excess bone cement. The patellar button was cemented and clamped in place. While the cement was polymerizing, I injected my periarticular mixture into the charlie-incisional soft tissues. After the cement hardened, I took the knee through range of motion tested stability and was happy with her Range of motion was 0-140 and the knee was stable to varus and valgus in extension and mid flexion. There was excellent patellar tracking. I then inserted the polyethylene articular insert and visually verified that it seated and engaged and locked in place. The tourniquet was let down and bleeders were cauterized. I then closed arthrotomy with simple interrupted #1 Vicryl with the exception of a [id number] proximally. Inverted interrupted 201 a multilayered fashion was used for subcutaneous tissue and running 4-0 Monocryl in a subcuticular fashion was used for skin. Prior to wound closure, all counts correct 2. No complications. At the conclusion of surgery, the leg was cleansed and dried and a sterile dressing was applied, our incisional wound VAC. Patient was then awakened from anesthesia and transferred gently supine to the recovery room cart and taken to PACU in a stable and extubated condition. Postoperative plan is to admit her to the joint center for DVT and antibiotic prophylaxis. She will also begin her rehabilitation. PELON CARRERO II, MD Oct 22, 2017 14:22
[2017-10-22] MEDS: GABAPENTIN 100 MG CAPSULE. PO SCH ×2 (15:10→20:38)
[2017-10-22] MEDS ORDERED: WARFARIN 7.5 MG TABLET. PO ONE (16:00)
[2017-10-22] MEDS: FERROUS SULFATE 325 MG TABLET. PO SCH (17:00)
[2017-10-22] MEDS: PANTOPRAZOLE 40 MG TABLET.DR. PO SCH (17:00)
[2017-10-22] MEDS: BUDESONIDE 0.5 MG/2 ML NEBU. NEB SCH (19:10)
[2017-10-22] MEDS: CELECOXIB 100 MG CAPSULE. PO SCH (20:38)
[2017-10-23 02:59] VITALS: BP 114/71
[2017-10-23 04:26] LABS: HEMATOCRIT 29.7 % (36.0-47.0); PROTHROMBIN TIME PATIENT 21.1 SEC (11.7-14.0); RED BLOOD COUNT 3.32 x10^6/uL (3.50-5.40); RED CELL DISTRIBUTION WIDTH 16.4 % (11.5-14.5); WHITE BLOOD COUNT 9.7 x10^3/uL (4.0-11.0)
[2017-10-23] MEDS ORDERED: MAGNESIUM HYDROXIDE 2,400 MG/30 ML ORAL.SUSP. PO PRN (06:00)
[2017-10-23 06:15] VITALS: BP 110/68
[2017-10-23] MEDS: IV DEXTROSE 5 %-0.45 % NACL 1,000 ML IV SCH ×2 (06:26→16:26)
[2017-10-23] MEDS: BUDESONIDE 0.5 MG/2 ML NEBU. NEB SCH ×2 (07:08→19:55)
[2017-10-23] MEDS: ALBUTEROL SULFATE 2.5 MG/3 ML NEBU. NEB SCH ×4 (07:08→23:47)
[2017-10-23] MEDS: PANTOPRAZOLE 40 MG TABLET.DR. PO SCH (07:18)
[2017-10-23] MEDS: FERROUS SULFATE 325 MG TABLET. PO SCH ×2 (08:15→17:18)
[2017-10-23] MEDS: MULTIVITAMIN with MINERAL TABLET. PO SCH (08:15)
[2017-10-23] MEDS: GABAPENTIN 100 MG CAPSULE. PO SCH ×3 (08:15→21:11)
[2017-10-23] MEDS: CELECOXIB 100 MG CAPSULE. PO SCH (08:16)
[2017-10-23] MEDS: SENNOSIDES/DOCUSATE 8.6/50MG TABLET. PO SCH (08:16)
[2017-10-23] MEDS: oxyCODONE/APAP 5/325 1 TAB TABLET PO PRN ×2 (08:16→12:56)
[2017-10-23 08:20] VITALS: BP 89/46
[2017-10-23] MEDS: MELOXICAM 7.5 MG TABLET PO SCH (09:00)
[2017-10-23] MEDS ORDERED: NON FORMULARY ITEM (Omeprazole 40 MG) PO SCH (09:00)
[2017-10-23] MEDS: LISINOPRIL 20 MG TABLET PO SCH (09:00)
--- NOTE | 2017-10-23 09:39 | PDOC ---
ORTHO PROGRESS NOTES Subjective Her pain is doing okay, no other complaints or concerns morning Vitals Vital Signs Date Time Temp Pulse Resp B/P (MAP) Pulse Ox O2 Delivery O2 Flow Rate FiO2 10/23/17 08:28 Room Air 10/23/17 08:20 78 89/46 (60) 10/23/17 07:09 95 10/23/17 06:15 97.5 16 97.5 Labs Laboratory Tests Test 10/22/17 08:25 10/23/17 04:00 Prothrombin Time 14.2 SEC (11.7-14.0) 21.1 SEC (11.7-14.0) Prothromb Time International Ratio 1.2 (0.8-1.1) 1.9 (0.8-1.1) Activated Partial Thromboplast Time 33 SEC (24-38) White Blood Count 9.7 x10^3/uL (4.0-11.0) Red Blood Count 3.32 x10^6/uL (3.50-5.40) Hemoglobin 10.0 g/dL (12.0-15.5) Hematocrit 29.7 % (36.0-47.0) Mean Corpuscular Volume 90 fL (79-100) Mean Corpuscular Hemoglobin 30 pg (25-35) Mean Corpuscular Hemoglobin Concent 34 g/dL (31-37) Red Cell Distribution Width 16.4 % (11.5-14.5) Platelet Count 182 x10^3/uL (140-400) Laboratory Tests Test 10/23/17 04:00 White Blood Count 9.7 x10^3/uL (4.0-11.0) Red Blood Count 3.32 x10^6/uL (3.50-5.40) Hemoglobin 10.0 g/dL (12.0-15.5) Hematocrit 29.7 % (36.0-47.0) Mean Corpuscular Volume 90 fL (79-100) Mean Corpuscular Hemoglobin 30 pg (25-35) Mean Corpuscular Hemoglobin Concent 34 g/dL (31-37) Red Cell Distribution Width 16.4 % (11.5-14.5) Platelet Count 182 x10^3/uL (140-400) Prothrombin Time 21.1 SEC (11.7-14.0) Prothromb Time International Ratio 1.9 (0.8-1.1) Notes She is lying in bed. Her dressings intact and dry. Normal motor and sensation is present in her left lower extremity. Assessment and Plan She is recovering properly. She will continue Coumadin and physical therapy. I would anticipate she will go home with home health care. SURYA CARRERO II, MD Oct 23, 2017 09:39
[2017-10-23] MEDS ORDERED: WARFARIN 1 MG TABLET. PO ONE (16:00)
[2017-10-23] MEDS ORDERED: BISACODYL 10 MG SUPP.RECT. PR PRN (16:00)
[2017-10-23 17:25] VITALS: BP 109/70
[2017-10-24 04:59] LABS: HEMATOCRIT 28.6 % (36.0-47.0); HEMOGLOBIN 9.7 g/dL (12.0-15.5); PROTHROMBIN TIME PATIENT 35.9 SEC (11.7-14.0)
[2017-10-24] MEDS: oxyCODONE/APAP 5/325 1 TAB TABLET PO PRN ×4 (05:25→19:13)
[2017-10-24 05:30] VITALS: BP 114/62
[2017-10-24] MEDS: BUDESONIDE 0.5 MG/2 ML NEBU. NEB SCH ×2 (07:20→20:05)
[2017-10-24] MEDS: ALBUTEROL SULFATE 2.5 MG/3 ML NEBU. NEB SCH ×4 (07:20→23:51)
--- NOTE | 2017-10-24 07:50 | PDOC ---
ORTHO PROGRESS NOTES Subjective Patient doing well eating breakfast. daughter is in room with patient. Post-op Day: 2 Procedure L TKA Vitals Vital Signs Date Time Temp Pulse Resp B/P (MAP) Pulse Ox O2 Delivery O2 Flow Rate FiO2 10/24/17 07:21 97 Room Air 10/24/17 05:30 98.0 78 20 114/62 (79) 98.0 Labs Laboratory Tests Test 10/22/17 08:25 10/23/17 04:00 10/24/17 04:30 Prothrombin Time 14.2 SEC (11.7-14.0) 21.1 SEC (11.7-14.0) 35.9 SEC (11.7-14.0) Prothromb Time International Ratio 1.2 (0.8-1.1) 1.9 (0.8-1.1) 3.7 (0.8-1.1) Activated Partial Thromboplast Time 33 SEC (24-38) White Blood Count 9.7 x10^3/uL (4.0-11.0) Red Blood Count 3.32 x10^6/uL (3.50-5.40) Hemoglobin 10.0 g/dL (12.0-15.5) 9.7 g/dL (12.0-15.5) Hematocrit 29.7 % (36.0-47.0) 28.6 % (36.0-47.0) Mean Corpuscular Volume 90 fL (79-100) Mean Corpuscular Hemoglobin 30 pg (25-35) Mean Corpuscular Hemoglobin Concent 34 g/dL (31-37) 34 g/dL (31-37) Red Cell Distribution Width 16.4 % (11.5-14.5) Platelet Count 182 x10^3/uL (140-400) Laboratory Tests Test 10/24/17 04:30 Hemoglobin 9.7 g/dL (12.0-15.5) Hematocrit 28.6 % (36.0-47.0) Mean Corpuscular Hemoglobin Concent 34 g/dL (31-37) Prothrombin Time 35.9 SEC (11.7-14.0) Prothromb Time International Ratio 3.7 (0.8-1.1) Assessment and Plan INR 3.7 this morning adjust coumadin dosage N/V intact at the toes dressing dry and intact discharge planning JOANN YAN APRN Oct 24, 2017 07:50
[2017-10-24] MEDS: LISINOPRIL 20 MG TABLET PO SCH (08:50)
[2017-10-24] MEDS: PANTOPRAZOLE 40 MG TABLET.DR. PO SCH (08:53)
[2017-10-24] MEDS: MULTIVITAMIN with MINERAL TABLET. PO SCH (08:53)
[2017-10-24] MEDS: SENNOSIDES/DOCUSATE 8.6/50MG TABLET. PO SCH (08:53)
[2017-10-24] MEDS: FERROUS SULFATE 325 MG TABLET. PO SCH ×2 (08:53→17:00)
[2017-10-24] MEDS: MELOXICAM 7.5 MG TABLET PO SCH (08:54)
[2017-10-24] MEDS: GABAPENTIN 100 MG CAPSULE. PO SCH ×3 (08:54→21:05)
[2017-10-24 17:25] VITALS: BP 100/49
[2017-10-24] MEDS ORDERED: MAGNESIUM HYDROXIDE 2,400 MG/30 ML ORAL.SUSP. PO ONE (19:15)
[2017-10-25 04:49] LABS: HEMATOCRIT 27.7 % (36.0-47.0); HEMOGLOBIN 9.5 g/dL (12.0-15.5)
[2017-10-25 04:58] VITALS: BP 113/62
[2017-10-25 05:01] LABS: PROTHROMBIN TIME PATIENT 31.7 SEC (11.7-14.0)
[2017-10-25] MEDS: oxyCODONE/APAP 5/325 1 TAB TABLET PO PRN ×3 (06:36→12:50)
[2017-10-25] MEDS: PANTOPRAZOLE 40 MG TABLET.DR. PO SCH (06:36)
[2017-10-25] MEDS: BUDESONIDE 0.5 MG/2 ML NEBU. NEB SCH (07:02)
[2017-10-25] MEDS: ALBUTEROL SULFATE 2.5 MG/3 ML NEBU. NEB SCH ×2 (07:02→13:01)
--- NOTE | 2017-10-25 07:57 | DISCH ---
DISCHARGE INSTRUCTIONS Condition on Discharge Condition on Discharge: Stable Activity After Discharge Activity Instructions for Disc: No restrictions, Activity as tolerated Bathing Instructions: Shower-keep dressing dry Lifting Instructions after Dis: No heavy lifting, No pulling or pushing, Do not lift >10 pounds Exercise Instruction after Dis: Exercise per therapy, Progress as tolerated Driving Instructions after Dis: Do not drive Weight Bearing Status after Di: As tolerated Diet after Discharge Diet after Discharge: Regular Wound Incision Care Wound/Incision Care: Ice to area for comfort, Keep wound/cast CDI, Do not change dressing Community/Resources/Services Services at Discharge: Home Health Care Services Contacting the DRBryce after DC Call your doctor for: Concerns you may have Follow-Up Follow up with: Nico in 2 wks Treatment/Equipment after DC Adaptive Equipment Issued: Walker Warfarin Follow-Up Warfarin Follow UP: per Pharmacy SURYA CARRERO II, MD Oct 25, 2017 07:57
[2017-10-25] MEDS: FERROUS SULFATE 325 MG TABLET. PO SCH (07:59)
[2017-10-25] MEDS: GABAPENTIN 100 MG CAPSULE. PO SCH ×2 (07:59→15:13)
[2017-10-25] MEDS: SENNOSIDES/DOCUSATE 8.6/50MG TABLET. PO SCH (07:59)
[2017-10-25] MEDS: MELOXICAM 7.5 MG TABLET PO SCH (07:59)
[2017-10-25] MEDS: MULTIVITAMIN with MINERAL TABLET. PO SCH (07:59)
[2017-10-25 08:00] VITALS: BP 105/64
--- NOTE | 2017-10-25 08:00 | DISCH ---
DISCHARGE WITH HOME HEALTH DISCHARGE INFORMATION: Discharge Date: Oct 25, 2017 Final Diagnosis: L knee DJD Condition on Discharge: Stable HOME HEALTH: Face to Face: I certify this patient is under my care and that I, or a nurse practitioner or physician's medical assistant supervisor working with me, had a face to face encounter that meets the physician face to face encounter requirements with this patient on []. Medical Condition(s): S/P Joint Replacement Senior Care For: Other: (blood draws) Occupational Therapy For: Evaluation/Treatment POST DISCHARGE ORDERS: Activity Instructions for Disc: No restrictions, Activity as tolerated Weight Bearing Status after Di: As tolerated Bathing Instructions: Shower-keep dressing dry DIET AFTER DISCHARGE: Regular Wound/Incision Care: Ice to area for comfort, Keep wound/cast CDI, Do not change dressing FOLLOW-UP: Follow up with: Nico in 2 wks Warfarin Follow UP: per Pharmacy TREATMENT/EQUIPMENT ORDERS Adaptive Equipment Issued: Archie CERTIFICATION STATEMENT: Certification Statement: Certification Statement: Based on the above finding, I certify that this patient is confined to the home and needs intermittent senior living care, physical therapy and/or speech therapy, or continues to need occupational therapy.~ This patient is under my care, and I have initiated the establishment of the plan of care.~ This patient will be followed by myself or a community physician who will periodically review the plan of care. SURYA CARRERO II, MD Oct 25, 2017 08:00
--- NOTE | 2017-10-25 09:57 | PDOC ---
ORTHO PROGRESS NOTES Subjective She feels like she is doing well. She has not had any problems. Vitals Vital Signs Date Time Temp Pulse Resp B/P (MAP) Pulse Ox O2 Delivery O2 Flow Rate FiO2 10/25/17 07:57 Room Air 10/25/17 07:03 96 10/25/17 06:36 20 10/25/17 04:58 98.7 82 113/62 (79) 98.7 Labs Laboratory Tests Test 10/24/17 04:30 10/25/17 04:30 Hemoglobin 9.7 g/dL (12.0-15.5) 9.5 g/dL (12.0-15.5) Hematocrit 28.6 % (36.0-47.0) 27.7 % (36.0-47.0) Mean Corpuscular Hemoglobin Concent 34 g/dL (31-37) 34 g/dL (31-37) Prothrombin Time 35.9 SEC (11.7-14.0) 31.7 SEC (11.7-14.0) Prothromb Time International Ratio 3.7 (0.8-1.1) 3.2 (0.8-1.1) Laboratory Tests Test 10/25/17 04:30 Hemoglobin 9.5 g/dL (12.0-15.5) Hematocrit 27.7 % (36.0-47.0) Mean Corpuscular Hemoglobin Concent 34 g/dL (31-37) Prothrombin Time 31.7 SEC (11.7-14.0) Prothromb Time International Ratio 3.2 (0.8-1.1) Notes She is awake and alert. Her dressing is intact and dry. She does have an effusion at her knee but overall her soft tissues look good. Assessment and Plan She can be discharged home, home health care. Weight-bear as tolerated activity as tolerated. She will follow up with me in 2 weeks. SURYA CARRERO II, MD Oct 25, 2017 09:57
[2017-10-25] MEDS: LISINOPRIL 20 MG TABLET PO SCH (11:00)
[2017-10-25] MEDS ORDERED: WARF1TAB74 PO (11:24)
[2017-10-25 13:15] VITALS: BP 102/66
--- NOTE | 2017-10-26 09:10 | PATHOLOGY ---
[facility] Accession Number: [id number] . 01 Material submitted: . LEFT KNEE BONE AND SOFT TISSUE . 01 Clinical history: . Not provided . 02 Diagnosis: Segments of bone and soft tissue, left total knee arthroplasty: - Advanced degenerative arthritis. - Mild nonspecific papillary chronic synovitis, focal. - Focal fat necrosis and chronic inflammation of soft tissues. . (JPM:mml; 10/25/17) [facility]/10/25/2017 . 02 Electronically signed: . Arun Chavira MD, Pathologist NPI- [id number] . 01 Gross description: . Received in formalin labeled "Hannah Chappell, left total knee bone and soft tissue" are several fragments of bone, adipose tissue, and meniscus ranging in size from 0.6 cm-7 cm and aggregating to 10.0 x 9.0 x 3.0 cm. The articular surfaces are roughened, granular and show prominent areas of eburnation ranging in size from 0.3 cm-4.5 cm. There are osteophytes present, 0.2-0.5 cm. Global Risk Management Director sections are submitted A1-A2. A1 meniscus and fat A2 bone, decal (KARLENE; 10/23/2017) JBR/JBR . 02 Pathologist provided ICD-10: M17.12, M65.862 . 02 CPT . 318795, [id number] Performed at: 01 [facility] [address] [facility] [address], [place] [id number] MD Mario Angeles MD Phone: [phone] Performed at: 02 [facility] [address] [place], [place] [id number] MD Arun Chavira MD Phone: [phone]
--- NOTE | 2017-10-26 09:10 | PDOC3 ---
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 Chappell is a 82 old female who presented to my outpatient orthopedic surgery clinic with complaints of severe and progressive pain that failed conservative therapies including injections. We had a discussion of the risks, benefits, alternatives to total knee arthroplasty and she elected to proceed. She tolerated surgery well and recovered well from anesthesia in the PACU. She was then taken to the joint Center for care and observation. She did receive PT , OT, DVT and antibiotic prophylaxis. She recovered well from surgery and remained hemodynamically stable and afebrile throughout the hospitalization. Pain was controlled on oral pain medicine at the time of discharge. Good progress was made with therapy throughout the hospitalization, and activities of daily living were accomplished by the patient. The incision was clean dry and intact and the operative extremity had normal motor and sensation. Discharge Information Condition at Discharge: Stable Follow Up: Weeks Disposition/Orders: D/C to Home w/ HH Scheduled Gabapentin (Gabapentin) 100 Mg Capsule, 100 MG PO TID, (Reported) Entered as Reported by: Daniela Graham on 09/11/16 0735 Last Action: Continued on 10/22/17 102 by ANA CARRERO MD Lisinopril (Lisinopril) 20 Mg Tablet, 1 TAB PO DAILY, #30 Ref 5 (Reported) Entered as Reported by: Daniela Graham on 09/11/16 0734 Last Action: Continued on 10/22/17 1029 by ANA CARRERO MD Omeprazole (Omeprazole) 40 Mg Capsule.dr, 40 MG PO DAILY, (Reported) Entered as Reported by: ETHAN DUKES on 06/13/17 0745 Last Action: Converted on 10/22/171028 by ANA CARRERO MD Warfarin Sodium (Coumadin) 1 Mg Tablet, 1 MG PO DAILY, #30 (Reported) Entered as Reported by: JO-ANN ROSA on 10/25/17 1124 Scheduled PRN Albuterol Sulfate (Albuterol Sulfate Conc Neb Soln) 2.5 Mg/0.5 Ml Vial.neb, 1 VIAL NEB Q6HRS PRN for SHORTNESS OF BREATH, #120 Ref 5 (Reported) Entered as Reported by: PEREZ MACIAS on 06/13/17 1240 Last Action: Converted on 10/22/171028 by ANA CARRERO MD Mometasone/Formoterol (Dulera 100 Mcg/5 Mcg Inhaler) 13 Gm Hfa.aer.ad, 2 PUFF IH BID PRN for SHORTNESS OF BREATH, #13 Ref 2 (Reported) Entered as Reported by: Daniela Graham on 09/11/16 0734 Last Action: Converted on 10/22/171028 by ANA CARRERO MD Oxycodone/Apap 5-325 (Percocet 5-325 Mg Tablet) 1 Each Tablet, 1 TAB PO every 3- 4 hrs prn PRN for PAIN, Ref 0 (Reported) Entered as Reported by: PRATIMA BENSON on 10/08/17 1352 Last Action: HELD on 10/22/171028 by ANA CARRERO MD Discontinued Medications Meloxicam (Mobic) 15 Mg Tablet, 15 MG PO ONCE, (Reported) NIGHT PRIOR AND AND MORNING OF SURGERY Entered as Reported by: HARISH RADFORD on 10/22/17 0812 Last Action: HELD on 10/22/171028 by ANA CARRERO MD Warfarin Sodium (Coumadin) 5 Mg Tablet, 5 MG PO ONCE, (Reported) HS NIGHT BEFORE SURGERY Entered as Reported by: HARISH RADFORD on 10/22/17 0810 Last Taken: Unknown Dose on 10/21/17 1800 Last Action: HELD on 10/22/171028 by ANA CARRERO MD Patient Instructions Patient Instructions She will be discharged home. Home health care has been set up. We will get her started on outpatient therapy as soon as we are able. The patient will be on Coumadin for a month. She can weight-bear as tolerated. Worrisome signs and symptoms that should prompt a phone call to my office were discussed. We' ll see her back in 2 weeks, sooner should a problem arise. SURYA CARRERO II, MD Oct 26, 2017 09:10
[2017-10-27] MEDS ORDERED: WARFARIN 1 MG TABLET. PO SCH (16:00)
== END 2017-10-25 15:50 | disposition home health service (06) | DRG 470 ==
LOC: OPSVCIP 07:34 → 4 SOUTHEST 13:52
PROVIDERS: ADMIT Orthopaedic Surgery Sports Medicine; ATTEND Orthopaedic Surgery Sports Medicine
PROC: 0SRD069 Replacement of Left Knee Joint with Oxidized Zirconium on Polyethylene Synthetic Substitute, Cemented, Open Approach (ICD-10-PCS; principal; 2017-10-22 09:50)
DX: M17.12 Unilateral primary osteoarthritis, left knee (principal); Z79.01 Long term (current) use of anticoagulants
CPT/HCPCS: 36415; 73560; 85014; 85018; 85027; 85610; 85730; 86850; 86900; 86901; 88305; 88311; 94640; 94760; A7015; C1713; J0171; J0690; J0780; J1100; J1885; J2001; J2270; J2405; J2704; J2795; J3010; J7030; J7120; J7613; J7626; 97110; 97116; 97150; 97530; 97535; C1769

== ENCOUNTER → 2018-09-27 | Outpatient (CLI) | payer OTHER ==
[~2018-09-27] MED LIST changes: -IV RINGERS,LACTATED 1000ML 1,000 ML IV SCH; -LIDOCAINE 1% PF 2 ML VIAL. ID PRN; +MELO15TA6 PO; -MORPHINE SULFATE 2 MG/ML VIAL. IV PRN; -ONDANSETRON PF 4 MG/2 ML VIAL. IV PRN; -OXYC-323 PO; +OXYC1TAB15 PO; -PROCHLORPERAZINE 10 MG/2 ML VIAL. IV PRN; -TRANEXAMIC ACID 1,000 MG in IV NS 50ML -- 1ST BAG INJ ONE; -TV=100ml MORPHINE 5 MG, KETOROLAC 30 MG, ROPIVacaine 0.5% PF 60 ML, EPINEPH... INT ART ONE; +WARF-78 PO; +WARF1TAB74 PO; -fentaNYL PF VIAL 100 MCG/2 ML VIAL IV PRN
--- NOTE | 2018-09-27 11:54 | CARD ---
MR#: [id number] Date of Study: 09/27/2018 Ordering Physician: DAMIEN GAVIN, Referring Physician: DAMIEN GAVIN Tech: Sunni Castrejon RDCS APPROVED REPORT EXAM: Two-dimensional and M-mode echocardiogram with Doppler and color Doppler. Other Information Quality : AverageHR: 85bpm Rhythm : NSR INDICATION Atrial Fibrillation 2D DIMENSIONS RVDd3.0 (2.9-3.5cm)Left Atrium(2D)5.1 (1.6-4.0cm) IVSd0.9 (0.7-1.1cm)Aortic Root(2D)2.4 (2.0-3.7cm) LVDd4.4 (3.9-5.9cm)LVOT Diameter1.9 (1.8-2.4cm) PWd1.0 (0.7-1.1cm)LVDs2.7 (2.5-4.0cm) FS (%) 38.1 %SV60.1 ml LVEF(%)65.0 (>50%) M-Mode DIMENSIONS Left Atrium(MM)4.89 (2.5-4.0cm)Aortic Root2.74 (2.2-3.7cm) Aortic Valve AoV Peak Luís.160.1cm/sAoV VTI25.8cm AO Peak GR.10.3mmHgLVOT Peak Luís.101.2cm/s AO Mean GR.4mmHgAVA (VMAX)1.75cm2 JOSE ELIAS (VTI)1.28su7MA P 1/2 Dowm261uo Mitral Valve MV E Otenwdjf756.1cm/sMV E Peak Gr.7mmHg MV DECEL [id number] A Lanzgsnm92.0cm/s MV E Mean Gr.3mmHgE/A Ratio1.8 Pulmonary Valve PV Peak Ovzfzgvw91.5cm/s Tricuspid Valve TR P. Ztxulaec945jc/sRAP LXNFZNJL7zlGq TR Peak Gr.52jqVqBCYX18hqEb Pulmonary Vein S1 Tgwrnwvp37.2cm/sD2 Jisgkuua80.3cm/s LEFT VENTRICLE The left ventricle is normal size. There is normal left ventricular wall thickness. The left ventricu lar systolic function is normal and the ejection fraction is within normal range. The Ejection Fracti on is 55-60%. There is normal LV segmental wall motion. Transmitral Doppler flow pattern is Grade II- pseudonormal filling dynamics. RIGHT VENTRICLE The right ventricle is normal size. There is normal right ventricular wall thickness. The right ventr icular systolic function is normal. ATRIA The left atrium is mild to moderately dilated. The right atrium is mildly dilated. The interatrial se ptum is intact with no evidence for an atrial septal defect or patent foramen ovale as noted on 2-D o r Doppler imaging. AORTIC VALVE The aortic valve is calcified but opens well. The aortic valve is trileaflet. Doppler and Color Flow revealed mild aortic regurgitation. There is no significant aortic valvular stenosis. There is no aor tic valvular vegetation. MITRAL VALVE The mitral valve is normal in structure and function. There is no evidence of mitral valve prolapse. There is no mitral valve stenosis. Doppler and Color-flow revealed mild to moderate mitral regurgitat ion. TRICUSPID VALVE The tricuspid valve is normal in structure and function. Doppler and Color Flow revealed mild tricusp id regurgitation. The PA pressure was estimated at 42 mmHg. There is no tricuspid valve prolapse or v egetation. There is no tricuspid valve stenosis. PULMONIC VALVE The pulmonic valve is not well visualized. GREAT VESSELS The aortic root is normal in size. The ascending aorta is normal in size. The IVC is normal in size a nd collapses >50% with inspiration. PERICARDIAL EFFUSION There is no evidence of significant pericardial effusion. Critical Notification Critical Value: No <Conclusion> The left ventricle is normal size. The left ventricular systolic function is normal and the ejection fraction is within normal range. The Ejection Fraction is 55-60%. The left atrium is mild to moderately dilated. There is no significant aortic valvular stenosis. Doppler and Color Flow revealed mild aortic regurgitation. Doppler and Color-flow revealed mild to moderate mitral regurgitation. Doppler and Color Flow revealed mild tricuspid regurgitation. The PA pressure was estimated at 42 mmHg. Signed by : Hector Quinn MD Electronically Approved : 09/27/2018 11:54:38
== END | disposition home or self-care (01) ==
LOC: ECHO 09:37
PROVIDERS: ATTEND Internal Medicine Cardiovascular Disease
DX: I08.3 Combined rheumatic disorders of mitral, aortic and tricuspid valves (principal); I48.0 Paroxysmal atrial fibrillation
CPT/HCPCS: 93306

== ENCOUNTER → 2019-11-28 | Outpatient (CLI) | payer OTHER ==
[~2019-11-28] MED LIST changes: +OMEP40CA45 PO; -OMEP40CA5 PO; -WARF-78 PO; +WARF1TAB2 PO; -WARF1TAB74 PO; +WARF5TAB2 PO
--- NOTE | 2019-11-28 14:42 | CARD ---
MR#: [id number] Date of Study: 11/28/2019 Ordering Physician: DAMIEN GAVIN, Referring Physician: DAMIEN GAVIN Tech: Kaleigh Valdez RDCS APPROVED REPORT EXAM: Two-dimensional and M-mode echocardiogram with Doppler and color Doppler. Other Information Quality : Good Rhythm : Atrial Fibrillation INDICATION Paraoxysmal Atrial Fibrillation 2D DIMENSIONS RVDd3.0 (2.9-3.5cm)Left Atrium(2D)5.1 (1.6-4.0cm) IVSd1.0 (0.7-1.1cm)Aortic Root(2D)2.6 (2.0-3.7cm) LVDd4.4 (3.9-5.9cm)LVOT Diameter2.0 (1.8-2.4cm) PWd0.9 (0.7-1.1cm)LVDs3.3 (2.5-4.0cm) FS (%) 25.7 %SV44.1 ml LVEF(%)50.8 (>50%) Aortic Valve AoV Peak Luís.153.7cm/sAoV VTI24.9cm AO Peak GR.9.5mmHgLVOT Peak Luís.84.0cm/s AO Mean GR.4mmHgAVA (VMAX)1.73cm2 JOSE ELIAS (VTI)1.77bt2KR P 1/2 Ynfc443uv Tricuspid Valve TR P. Ommrvfpa357hx/sRAP ZYOOCMVT6rcBx TR Peak Gr.26gqOkWIAF31eoAs Pulmonary Vein S1 Irehnkef17.3cm/sD2 Cekdowlp70.3cm/s LEFT VENTRICLE The left ventricle is normal size. There is normal left ventricular wall thickness. Left ventricle sy stolic function is normal. The Ejection Fraction is 55%. There is normal LV segmental wall motion. RIGHT VENTRICLE The right ventricle is normal size. The right ventricular systolic function is normal. ATRIA The left atrium is moderately dilated. The right atrium size is normal. The interatrial septum is int act with no evidence for an atrial septal defect or patent foramen ovale as noted on 2-D or Doppler i maging. AORTIC VALVE The aortic valve is normal in structure and function. Doppler and Color Flow revealed mild aortic reg urgitation. There is no significant aortic valvular stenosis. MITRAL VALVE The mitral valve is normal in structure and function. There is no mitral valve stenosis. Doppler and Color-flow revealed trace mitral regurgitation. TRICUSPID VALVE The tricuspid valve is normal in structure and function. Doppler and Color Flow revealed mild tricusp id regurgitation. There is no tricuspid valve stenosis. PULMONIC VALVE The pulmonic valve is not well visualized. Doppler and Color Flow revealed trace pulmonic valvular re gurgitation. There is no pulmonic valvular stenosis. GREAT VESSELS The aortic root is normal in size. The ascending aorta is mildly dilated at 3.5 cm. The IVC is normal in size and collapses >50% with inspiration. PERICARDIAL EFFUSION There is no evidence of significant pericardial effusion. Critical Notification Critical Value: No <Conclusion> Left ventricle systolic function is normal. The Ejection Fraction is 55%. There is normal LV segmental wall motion. Mild aortic regurgitation. Trace mitral regurgitation. Mild tricuspid regurgitation. There is no evidence of significant pericardial effusion. Signed by : Damien Gavin, Electronically Approved : 11/28/2019 14:42:04
== END | disposition home or self-care (01) ==
LOC: ECHO 10:42
PROVIDERS: ATTEND Internal Medicine Cardiovascular Disease
DX: I48.0 Paroxysmal atrial fibrillation (principal); I08.2 Rheumatic disorders of both aortic and tricuspid valves
CPT/HCPCS: 93306